=== PATIENT | male | born 1980 | race Two or more races ===

== ENCOUNTER 2017-01-08 05:55 | Emergency (ER) | payer SELFPAY ==
[2017-01-08 06:08] VITALS: PULSE 67
--- NOTE | 2017-01-08 06:18 | EDPHY ---
H & P Stated Complaint: playing soccer yesterday, pain to right knee HPI/ROS: HPI CHIEF COMPLAINT: Right lateral knee pain. HISTORY OF PRESENT ILLNESS: Patient otherwise healthy 36-year-old male, no significant medical history presents emergency room by private vehicle with right lateral knee pain. He states he was playing soccer yesterday. Somebody ran into the side of his knee with their knee. Since then he has had ongoing pain. Worse with range of motion. He is able to bear weight. Pain is 6/10. He does have full range of motion. He is neurovascular intact distally. No other areas of pain. Past Medical History: No medical history Past Surgical History: No surgical history Social History: Denies daily use of drugs alcohol tobacco products. Family History: Non noncontributory ROS REVIEW OF SYSTEMS: A comprehensive 10 point review of systems is otherwise negative aside from elements mentioned in the history of present illness. Exam Constitutional triage nursing summary reviewed, vital signs reviewed, awake/ alert. Eyes normal conjunctivae and sclera, EOMI, PERRLA. HENT normal inspection, atraumatic, moist mucus membranes, no epistaxis, neck supple/ no meningismus, no raccoon eyes. Respiratory clear to auscultation bilaterally, normal breath sounds, no respiratory distress, no wheezing. Cardiovascular rate normal, regular rhythm, no murmur, no edema, distal pulses normal. Gastrointestinal soft, non-tender, no rebound, no guarding, normal bowel sounds, no distension, no pulsatile mass. Genitourinary no CVA tenderness. Musculoskeletal right lower extremity: Neurovascular intact good distal pulse. Good cap refill, normal sensation, full range of motion of the right knee, negative anterior-posterior drawer sign. Tender palpation over the lateral knee. No signs of significant swelling no joint effusion on exam. no midline vertebral tenderness, full range of motion, no calf swelling, no tenderness of extremities, no meningismus, good pulses, neurovascularly intact. Skin pink, warm, & dry, no rash, skin atraumatic. Neurologic awake, alert and oriented x 3, AAOx3, moves all 4 extremities equally, motor intact, sensory intact, CN II-XII intact, normal cerebellar, normal vision, normal speech. Psychiatric normal mood/affect. Heme/Lymph/Immune no lymphadenopathy. Differential Diagnosis: Includes but is not limited to in a particular order, knee contusion, fracture, lateral ligament injury, sprain Medical Decision Making: Plan for this patient ibuprofen 800 mg, x-ray right knee, knee immobilizer. Orthopedic follow-up. Re-evaluation: Right Knee Xray Negative for fx. [place]/Knee Immob/IBU given/ice Pack, follow up ortho. Source: Patient - Personal History Current Tetanus Diphtheria and Acellular Pertussis (TDAP): Yes - Medical/Surgical History Hx Asthma: No Hx Chronic Respiratory Disease: No Hx Diabetes: No Hx Cardiac Disease: No Hx Renal Disease: No Hx Cirrhosis: No Hx Alcoholism: No Hx HIV/AIDS: No Hx Splenectomy or Spleen Trauma: No Other PMH: denies - Social History Smoking Status: Heavy smoker Constitutional: Initial Vital Signs Temperature (C) 37 C 01/08/17 06:04 Heart Rate 67 01/08/17 06:04 Respiratory Rate 16 01/08/17 06:04 Blood Pressure 127/86 H 01/08/17 06:04 O2 Sat (%) 97 01/08/17 06:04 O2 Delivery Mode Room Air Allergies/Adverse Reactions: No Known Allergies Allergy (Unverified 01/08/17 06:04) Home Medications: Medication Instructions Recorded Advil 01/08/17 Ibuprofen [Motrin (*)] 800 mg PO Q6-8PRN #10 tab 01/08/17 Medical Decision Making - Data Points Medications Given: Discontinued Medications Ibuprofen (Motrin) 800 mg PO EDNOW ONE Stop: 01/08/17 06:22 Last Admin: 01/08/17 06:32 Dose: 800 mg Departure - Departure Disposition: Home, Routine, Self-Care Clinical Impression: Knee sprain Qualifiers: Encounter type: initial encounter Involved ligament of knee: other ligament Laterality: right Qualified Code(s): S83.8X1A - Sprain of other specified parts of right knee, initial encounter Condition: Good Instructions: Knee Sprain (ED), Knee Immobilizer (ED) Additional Instructions: 1. Ice your knee. 2. Knee immobilizer for support and comfort. 3. Follow up Orthopedics. 4. Ibuprofen for pain control. 5. Return if worsening symptoms questions or concerns. Referrals: NONE *PRIMARY CARE P,. [Unknown] - As per Instructions Casimiro Tran MD [Medical Doctor] - As per Instructions Stand Alone Forms: Work Excuse Prescriptions: Ibuprofen [Motrin (*)] 800 mg PO Q6-8PRN #10 tab Print Language: Nigerian
[2017-01-08] MEDS ORDERED: IBUPROFEN 200 MG TAB PO ONE (06:21)
[2017-01-08 07:12] VITALS: BP 122/72; RESP 18; TEMP 97.5; O2SAT 95
== END 2017-01-08 07:10 | disposition home or self-care (01) ==
DX: S83.8X1A Sprain of other specified parts of right knee, initial encounter (principal); F17.200 Nicotine dependence, unspecified, uncomplicated; W51.XXXA Accidental striking against or bumped into by another person, initial encounter; Y99.8 Other external cause status; Y93.66 Activity, soccer
CPT/HCPCS: L1830